=== PATIENT | female | born 1985 | race Two or more races ===

== ENCOUNTER 2017-08-21 16:54 | Emergency (ER) | END 2017-08-21 18:39 | disposition home or self-care (01) ==

== ENCOUNTER 2018-01-10 21:19 | Emergency (ER) | END 2018-01-11 00:10 | disposition left against medical advice (07) ==

== ENCOUNTER 2018-01-12 13:23 | Emergency (ER) | END 2018-01-12 16:32 | disposition home or self-care (01) ==